=== PATIENT | male | born 1945 | race Caucasian/White ===

== ENCOUNTER 2023-08-03 06:17 | Day surgery (SDC) | payer OTHER, SELFPAY ==
[2023-06-22 14:45] VITALS: BMI 33.2
--- NOTE | 2023-06-22 15:35 | PTCARENOTE ---
Pt's abnormal EKG reviewed by Dr. Meyer, cardiac or medical clearance required. Angie in Dr. Vora's office made aware.
[2023-08-03] VITALS (12 sets, daily range): BP systolic 127–149; BP diastolic 61–85; BMI 33.2
[2023-08-03] MEDS: NORMOSOL-R 1000 IV (10:50)
[2023-08-03] MEDS: TYLENOL 1000 MG PO (10:57)
--- NOTE | 2023-08-03 13:37 | OR.RPT ---
Operative Report
Operative Report
Primary Surgeon: Diony
Assisting: Ninfa APARICIO
Pre-op Diagnosis: Incarcerated umbilical hernia
Post-op Diagnosis: Incarcerated umbilical hernia (3.5cm x 2.5cm)
Procedure Performed: Robot assisted laparoscopic repair of incarcerated umbilical hernia (rTAPP)
Anesthesia Type: GETA + TAP block
Specimen / Cultures: None
Estimated Blood Loss: 3cc
Complications: None immediate
Operative Findings: 3.5 x 2.5cm defect with incarcerated fat; 15cm x 15cm bard soft mesh
Date of Surgery:� 08/03/23
Indications:� This 77M developed�a symptomatic umbilical hernia. Repair was thus indicated and laparoscopic approach was elected.
Description of procedure:� The patient was taken to the operating room and the correct site of surgery was verified. General anesthesia was induced and the patient was placed supine on the operating table with arms tucked.� The patient�s abdomen was
prepped and draped in standard sterile fashion. A time-out was completed verifying correct patient, procedure, site, positioning, and implants and special equipment prior to beginning this procedure. A stab incision was made in the left upper
quadrant, a Veress needle was inserted and proper position was confirmed by aspiration and saline drop test. Following this, pneumoperitoneum was created with insufflation of carbon dioxide to 12 mmHg. Then a 8mm robotic trocar was inserted at the
left anterior axillary line at the level of the umbilicus. A laparoscope was inserted and the area of initial trocar entry and Veress needle placement were both inspected and free of trauma. Two 8mm trocars were then placed a hand's breadth above
and below the initial trocar under direct visualization. The peritoneum was incised at the falciform ligament and a flap was developed in transverse and caudad directions using blunt and sharp dissection. The umbilical defect measured as above. The
defect was closed with 0 PDS stratafix suture.� A 15 x 15cm piece of bard soft mesh was passed into the abdomen. The mesh was moved into position to lay flat against the abdominal wall, centered on the defect. The mesh was secured into place using
2-0 vicryl suture under the defect and at all four corners as well as senior living along each side.� A 2-0 monocryl stratafix was used to close the flap. A transversus abdominis plane block was performed under laparoscopic vision using
decadron/marcaine. After ensuring adequate hemostasis, the trocars were removed and the pneumoperitoneum allowed to escape. The trocar incisions were closed at the skin level using 4-0 monocryl and topical skin adhesive. The patient tolerated the
procedure well and was taken to the postanesthesia care unit in stable condition.
The assistance of Ninfa APARICIO was required due to the complexity of the procedure. During the procedure she assisted with retraction, resection, and closure of the wound.
[2023-08-03] MEDS: DILAUDID 0.5 MG IV ×2 (14:10→14:31)
[2023-08-03] MEDS: DEMEROL 12.5 MG IV (14:49)
--- NOTE | 2023-08-03 16:34 | SUR.PHASEI ---
Dr. Vora and Dr. Berry made aware of 02, pt wide awake, has IS, okay to move to SDS
== END 2023-08-03 17:07 | disposition home or self-care (01) ==
LOC: SDS 06:17
PROVIDERS: ATTENDING PHYSICIAN Surgery; FAMILY PHYSICIAN Family Medicine
DX: K42.0 Umbilical hernia with obstruction, without gangrene (principal)
CPT/HCPCS: 49592; 36415; 93005; C1781

== ENCOUNTER → 2023-08-24 06:16 | Day surgery (SDC) | payer OTHER, SELFPAY | LOC: GI 06:16 | PROVIDERS: ATTENDING PHYSICIAN Internal Medicine Gastroenterology | DX: K22.70 Barrett's esophagus without dysplasia (principal) | CPT/HCPCS: 43239; 88305 ==

== ENCOUNTER 2023-08-31 18:35 | Emergency (ER) | payer OTHER, SELFPAY ==
[2023-08-31 18:38] VITALS: BP 150/74
--- NOTE | 2023-08-31 19:19 | ED.GENMED ---
History of Present Illness
General
Chief Complaint: Dizziness
Source: patient
Exam Limitations: none
Time Seen by Provider: 08/31/23 19:18
Nursing documentation reviewed up to this point in time: agreed with
Travel History
Have you had any contact with someone who has COVID-19?: No
Do you have any symptoms of coronavirus? Fever > 100 degrees, chills, cough, shortness of breath, sore throat, loss of taste or smell, muscle aches, or headache?: No
History of Present Illness
History of Present Illness:
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 States sudden onset
room spinning dizziness, nausea and vomiting at 2 p.m. [place] completely well prior to that. Has Meclizine at home and took a dose at 2 p.m. and again at 3:30 p.m. No relief. Denies weakness in extremities, denies headache.
Has similar episode one month ago and took Meclizine, symptoms slowly dissipated over a weeks time.
Past History
Past History
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 difficile colitis June 2015., Sleep apnea) and Other (Vertigo); Negative Asthma, HTN, Hypercholesterolemia or NIDDM
ED Past Surgical History: Orthopedic and Other (Carpal tunnel release, basal cell removal from the left ear)
Social History
Tobacco: Former smoker
Alcohol: Occasional
Drug: None
Personal:
Living: with family
Employment: Retired
Family History
Family History: Other (Noncontributory)
Review of Systems
Review of Systems
Allergies reviewed?: Yes
All Other Systems: ROS reviewed and negative except as documented in HPI and ROS
Constitutional: Denies fever
Respiratory: Denies trouble breathing
Cardiac: Denies chest pain
ABD/GI: Reports nausea and vomiting; Denies abdominal pain
: Denies dysuria or difficulty voiding
Musculoskeletal: Reports no symptoms
Skin: Reports no symptoms
Neurological: Reports dizzy (severe room spinning and nausea when he opens his eyes.); Denies headache or weakness
Phy Exam
Physical Exam
Physical Exam:
GENERAL: Actively vomiting. A&Ox3.
CONSTITUTIONAL: Afebrile.
EYES: PERRL, conjunctivae normal
ENMT: moist mucus membranes, Pharynx nl
RESPIRATORY: Regular respirations, nonlabored, lungs clear.
CARDIOVASCULAR: Regular rate and rhythm, no murmurs, no rubs.
GI: Soft, nontender, normal BS
MUSCULOSKELETAL: Moves with ease. Well perfused.
SKIN: Warm, dry, pink
PSYCH: Anxious mood and affect. Well kept, interactive and appropriate
NEUROLOGIC: Awake, alert and oriented. No focal neurological deficits
Course
Orders/Labs/Results
Orders:
Orders
08/31/23 19:22
Ondansetron Injectable [Zofran] 4 mg IV NOW STA
diazePAM [Valium Injection] 2 mg IV NOW STA
08/31/23 19:23
0.9% Sodium Chloride 1000 ml [Nss] 1,000 ml IV BOLUS
08/31/23 19:30
Complete Blood Count/With Diff Urgent
Comprehensive Metabolic Panel Urgent
08/31/23 21:47
Meclizine [Antivert] 25 mg PO NOW STA
diazePAM [Valium Injection] 2 mg IV NOW STA
Abnormal Lab Results
08/31/23
19:30
Abs Immat Gran (auto) 0.1 H 10^3/uL
(0-0.05)
Absolute Neuts (auto) 7.2 H 10^3/uL
(1.4-6.5)
Absolute Lymphs (auto) 1.1 L 10^3/uL
(1.2-3.4)
Immature Gran % 0.9 H %
(0-0.5)
Neutrophils % 81.0 H %
(42.2-75.2)
Lymphocytes % 12.0 L %
(20.5-51.1)
Chloride 108 H mmol/L
(98-107)
Carbon Dioxide 20 L mmol/L
(22-30)
Glucose 187 H mg/dl
(70-99)
Total Protein 6.1 L g/dl
(6.3-8.2)
08/31/23 19:30
08/31/23 19:30
Vital Signs
Initial and Last Documented VS:
Initial Vital Signs
Temp Pulse Resp BP Pulse Ox
97.7 F 55 18 150/74 98
08/31/23 18:38 08/31/23 18:38 08/31/23 18:38 08/31/23 18:38 08/31/23 18:38
Last Documented Vital Signs
Temp Pulse Resp BP Pulse Ox
97.7 F 63 17 118/62 97
08/31/23 18:38 08/31/23 23:15 08/31/23 23:15 08/31/23 23:00 08/31/23 23:15
MDM/Problems Addressed
Differential Diagnosis Includes:
BPPV, labyrinthitis, vestibular neuritis
MDM/Problems Addressed:
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 States sudden onset
room spinning dizziness, nausea and vomiting at 2 p.m. [place] completely well prior to that. Has Meclizine at home and took a dose at 2 p.m. and again at 3:30 p.m. No relief. Denies weakness in extremities, denies headache.
Has similar episode one month ago and took Meclizine, symptoms slowly dissipated over a weeks time.
8:14 PM
patient feeling much better after medications
Tolerating aleksander horacio
Neuro exam is normal, cranial nerves II through XII intact, [id number] normal
9:40 p.m.
Pt OOB took 3 steps and got very dizzy and had to lay down, He does say he feels 50% better than on arrival but not quite ready to go home.
No further vomiting
Will give another dose of Valium and a dose of Meclizine
11:20
Pt feeling much better asking to go home
Rx for Zofran sent to his pharmacy. He has plenty of Meclizine at home
[facility]
*Critical Care Note
Total Time (30-74mins, 75-104mins- exclusive of procedures): Not Applicable
ED Attending Note
-
Portions of this chart may have been created with voice recognition software.� Occasional wrong word or��sound alike� substitutions may have occurred due to the inherent limitations of voice recognition software.
Discharge Plan
Departure
Patient Disposition: Home (Routine Discharge)
Date of Disposition: 08/31/23
Time of Disposition: 23:16
Patient with high blood pressure during this ER visit?: No
Condition: Good
Discharge Problem:
Benign paroxysmal positional vertigo
Instructions: Vertigo (a Type of Dizziness) (DC)
Prescriptions:
New
ondansetron 4 mg tablet,disintegrating
4 mg PO Q8H 3 Days Qty: 9 0RF
No Action
docusate sodium [Colace] 100 mg Capsule
100 mg PO DAILY
vitamin A-vitamin C-vit E-min Tablet
1 tab PO DAILY
alfuzosin 10 mg Tablet Extended Release 24 Hr
10 mg PO DAILY
tadalafil 5 mg Tablet
5 mg PO DAILY
cholecalciferol (vitamin D3) [Vitamin D3] 25 mcg (1,000 unit) Tablet
25 mcg PO DAILY
omeprazole 20 mg Tablet,Delayed Release (Dr/Ec)
20 mg PO DAILY
cyanocobalamin (vitamin B-12)
1 dose PO .EVERY 72 HOURS
melatonin 3 mg Tablet
3 mg PO HS
Occuvite
1 tab PO DAILY
oxycodone 5 mg tablet
5 - 10 mg PO Q4HPRN PRN (Reason: moderate to severe pain) Qty: 16 0RF
Referrals:
[facility] [Other[facility] - Tomorrow
Moni Barnhart MD [Family Provider] -
Activity Restrictions/Additional Instructions:
As we discussed, call the [facility] tomorrow and make next available appointment.
Meclizine 12.5- 25 mg every 8 hours as needed for dizziness.
I sent a prescription to your pharmacy for Zofran to use if needed for nausea/vomiting
Interventions
Interventions:
*Risk Screen - Suicide Last Done: 08/31/23 20:00
*General Assessment Last Done: 08/31/23 23:33
*Neglect/Abuse Screening Last Done: 08/31/23 20:00
ED- Fall Risk Assessment Last Done: 08/31/23 20:00
*Nursing Disposition Last Done: 08/31/23 23:33
ED- Neurological Assessment Last Done: 08/31/23 20:00
ED- Cardiac Assessment Last Done: 08/31/23 20:00
Discharge Date and Time
Discharge Date/Time: 08/31/23 23:35
Print Language: INDONESIAN
[2023-08-31] MEDS: VALIUM INJECTION 2 MG IV ×2 (19:28→21:52)
[2023-08-31] MEDS: ZOFRAN 4 MG IV (19:28)
[2023-08-31] MEDS: NSS 1000 IV (19:28)
[2023-08-31 19:30] VITALS: BP 145/64
[2023-08-31 19:41] LABS: % Basophils 0.3 % (0-2); % Immature Granulocytes 0.9 % (0-0.5); % Monocytes 4.8 % (1.7-9.3); Absolute Eosinophils 0.1 10^3/uL (0-0.7); Absolute Immature Granulocytes 0.1 10^3/uL (0-0.05); Absolute Lymphocytes 1.1 10^3/uL (1.2-3.4); Absolute Monocytes 0.4 10^3/uL (0.1-0.6); Absolute Neutrophils 7.2 10^3/uL (1.4-6.5); Hematocrit 42.3 % (39.0-52.0); Hemoglobin 14.4 g/dL (13.0-18.0); Mean Corpuscular Hgb 29.1 pg (27.0-31.0); Mean Corpuscular Volume 85.6 fL (80.0-94.0); Mean Platelet Volume 9.5 fL (7.4-10.4); Nucleated Red Blood Cells % 0 % (-); Platelet Count 181 10^3/uL (130-400); Red Blood Cell Count 4.94 10^6/uL (4.70-6.10); Red Cell Dist. Width 12.9 % (11.5-14.5); White Blood Cell Count 8.8 10^3/uL (4.8-10.8)
--- NOTE | 2023-08-31 19:45 | EDRN ---
After Valium, patients o2 sats decreased, reports he has a hx of sleep apnea, patient placed on nasal canula
[2023-08-31 19:55] LABS: ALT (SGPT) 14 U/L (0-50); AST (SGOT) 22 U/L (17-59); Albumin 3.6 g/dl (3.5-5.0); Alkaline Phosphatase 93 U/L (38-126); Blood Urea Nitrogen 17 mg/dl (9-20); Calcium 9.1 mg/dl (8.4-10.2); Carbon Dioxide 20 mmol/L (22-30); Chloride 108 mmol/L (98-107); Glucose 187 mg/dl (70-99); Potassium 4.5 mmol/L (3.5-5.1); Sodium 137 mmol/L (135-145); Total Bilirubin 0.5 mg/dl (0.2-1.3); Total Protein 6.1 g/dl (6.3-8.2); eGFR > 60.00
[2023-08-31 20:00] VITALS: BP 122/50; BMI 33.8
--- NOTE | 2023-08-31 20:14 | EDRN ---
Patient feeling a little better, provided with some gingerale to try
[2023-08-31 21:00] VITALS: BP 126/67
[2023-08-31] MEDS: ANTIVERT 25 MG PO (21:52)
[2023-08-31 22:00] VITALS: BP 126/78
--- NOTE | 2023-08-31 22:03 | EDRN ---
Attempted to ambulate, patient was only able to walk a few steps before getting very dizzy again, KARLIE Lancaster aware, more medication ordered and given to patient, call cherie in [facility], [place].
[2023-08-31 23:00] VITALS: BP 118/62
--- NOTE | 2023-08-31 23:32 | EDRN ---
Patient feels much better and good to be discharged home.
== END 2023-08-31 23:35 | disposition home or self-care (01) ==
LOC: EMR 18:35
PROVIDERS: EMERGENCY PHYSICIAN Emergency Medicine; FAMILY PHYSICIAN Family Medicine
DX: H81.10 Benign paroxysmal vertigo, unspecified ear (principal); G47.33 Obstructive sleep apnea (adult) (pediatric); J84.9 Interstitial pulmonary disease, unspecified; J84.112 Idiopathic pulmonary fibrosis; F32.9 Major depressive disorder, single episode, unspecified; N40.0 Benign prostatic hyperplasia without lower urinary tract symptoms; K21.9 Gastro-esophageal reflux disease without esophagitis; Z87.19 Personal history of other diseases of the digestive system; Z85.828 Personal history of other malignant neoplasm of skin; Z87.891 Personal history of nicotine dependence
CPT/HCPCS: 99283; 96374; 96375; 96376; 96361; 80053; 85025

== ENCOUNTER 2023-09-04 06:39 | Outpatient (RCR) | payer OTHER, SELFPAY | END 2023-09-04 23:59 | disposition home or self-care (01) | LOC: RPT 06:39 | PROVIDERS: ATTENDING PHYSICIAN Family Medicine | DX: R42 Dizziness and giddiness (principal); R26.2 Difficulty in walking, not elsewhere classified; Z73.6 Limitation of activities due to disability | CPT/HCPCS: 97112; 97162 ==

== ENCOUNTER → 2023-09-06 07:37 | Outpatient (REF) | payer OTHER, SELFPAY | LOC: MRI 07:37 | PROVIDERS: ATTENDING PHYSICIAN Physical Medicine & Rehabilitation; FAMILY PHYSICIAN Family Medicine | DX: M25.511 Pain in right shoulder (principal); M75.31 Calcific tendinitis of right shoulder | CPT/HCPCS: 73221 ==

== ENCOUNTER 2023-09-16 09:46 | Outpatient (RCR) | payer OTHER, SELFPAY | END 2023-09-16 23:59 | disposition home or self-care (01) | LOC: RPT 09:46 | PROVIDERS: ATTENDING PHYSICIAN Family Medicine | DX: R42 Dizziness and giddiness (principal); R26.2 Difficulty in walking, not elsewhere classified; Z73.6 Limitation of activities due to disability | CPT/HCPCS: 97112 ==

== ENCOUNTER → 2023-09-23 15:41 | Outpatient (REF) | payer OTHER, SELFPAY | LOC: HWRCS 15:41 | PROVIDERS: ATTENDING PHYSICIAN Internal Medicine Cardiovascular Disease; FAMILY PHYSICIAN Family Medicine | DX: I44.4 Left anterior fascicular block (principal) | CPT/HCPCS: 93306 ==

== ENCOUNTER → 2023-10-20 07:30 | Outpatient (REF) | payer OTHER, SELFPAY | LOC: PAVMRI 07:30 | PROVIDERS: ATTENDING PHYSICIAN Otolaryngology Facial Plastic Surgery; FAMILY PHYSICIAN Family Medicine | DX: R42 Dizziness and giddiness (principal); H81.12 Benign paroxysmal vertigo, left ear; H90.3 Sensorineural hearing loss, bilateral | CPT/HCPCS: 70553; A9575 ==

== ENCOUNTER 2023-11-02 16:38 | Inpatient (IN) | payer OTHER, SELFPAY ==
[2023-11-02] VITALS (13 sets, daily range): BP systolic 130–185; BP diastolic 61–101; BMI 34.6; BMI 33.2
--- NOTE | 2023-11-02 10:09 | EDRN ---
Autumn PHILLIPS in room w/ pt at this time.
--- NOTE | 2023-11-02 10:18 | EDRN ---
Pt was 95% POX at rest and dropped to 92% when moving for assessment so Autumn PHILLIPS placed pt on oxygen for comfort.
[2023-11-02 10:41] LABS: % Basophils 0.6 % (0-2); % Eosinophils 2.5 % (0-6); % Immature Granulocytes 0.8 % (0-0.5); % Lymphocytes 13.5 % (20.5-51.1); % Monocytes 7.1 % (1.7-9.3); % Neutrophils 75.5 % (42.2-75.2); Absolute Eosinophils 0.2 10^3/uL (0-0.7); Absolute Immature Granulocytes 0.1 10^3/uL (0-0.05); Absolute Monocytes 0.5 10^3/uL (0.1-0.6); Absolute Neutrophils 5.4 10^3/uL (1.4-6.5); Hematocrit 44.6 % (39.0-52.0); Hemoglobin 15.3 g/dL (13.0-18.0); Mean Corp Hgb Conc. 34.3 g/dL (33.0-37.0); Mean Corpuscular Hgb 28.7 pg (27.0-31.0); Mean Corpuscular Volume 83.7 fL (80.0-94.0); Mean Platelet Volume 9.1 fL (7.4-10.4); Nucleated Red Blood Cells % 0 % (-); Platelet Count 176 10^3/uL (130-400); Red Blood Cell Count 5.33 10^6/uL (4.70-6.10); White Blood Cell Count 7.2 10^3/uL (4.8-10.8)
[2023-11-02 10:56] LABS: ALT (SGPT) 17 U/L (0-50); AST (SGOT) 25 U/L (17-59); Albumin 3.5 g/dl (3.5-5.0); Alkaline Phosphatase 81 U/L (38-126); Blood Urea Nitrogen 20 mg/dl (9-20); Calcium 8.9 mg/dl (8.4-10.2); Carbon Dioxide 26 mmol/L (22-30); Chloride 107 mmol/L (98-107); Estimated Creatinine Clearance 81 ml/min; Glucose 125 mg/dl (70-99); Potassium 4.2 mmol/L (3.5-5.1); Sodium 137 mmol/L (135-145); Total Bilirubin 0.4 mg/dl (0.2-1.3); Total Protein 5.8 g/dl (6.3-8.2); eGFR > 60.00
[2023-11-02 11:08] LABS: NT-proBNP 455 pg/ml; Troponin I < 0.012 ng/ml
--- NOTE | 2023-11-02 13:35 | EDRN ---
Pt OOB to BR and back to stretcher.
--- NOTE | 2023-11-02 14:09 | EDRN ---
Pt ambulated from room #33 down to #26 across to #39 and back to room #33 past physician area. Pt had increasing SOB and lowering of pulse ox and heart rate increased to 120. POX decreased down to 88%, HR increased to 120 and resp rate w/ increased
WOB was [address] walk to end of walk.
--- NOTE | 2023-11-02 14:15 | EDRN ---
Autumn PHILLIPS was informed about pt's results of walk in HW w/out oxygen while monitoring POX.
--- NOTE | 2023-11-02 14:16 | EDRN ---
Autumn PHILLIPS in room w/ pt at this time.
--- NOTE | 2023-11-02 15:15 | ED.GENMED ---
History of Present Illness
General
Chief Complaint: Breathing Problem
Source: patient and spouse
Exam Limitations: none
Time Seen by Provider: 11/02/23 09:56
Nursing documentation reviewed up to this point in time: agreed with
History of Present Illness
History of Present Illness:
77-year-old male with past medical history of GERD pulmonary fibrosis presenting to the emergency department today with concerns of worsening shortness of breath over the past few days. Seem to start when he had surgery on his right shoulder done 3
days ago. Specifically worse with exertion denies specific chest pain denies fevers denies nausea vomiting.
Past History
Past History
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 difficile colitis June 2015., Sleep apnea) and Other (Vertigo); Negative Asthma, HTN, Hypercholesterolemia or NIDDM
ED Past Surgical History: Orthopedic and Other (Carpal tunnel release, basal cell removal from the left ear)
Social History
Tobacco: Former smoker
Alcohol: Occasional
Drug: None
Personal:
Living: with family
Employment: Retired
Family History
Family History: Other (Noncontributory)
Review of Systems
Review of Systems
Allergies reviewed?: Yes
All Other Systems: ROS reviewed and negative except as documented in HPI and ROS
Phy Exam
Physical Exam
Physical Exam:
GENERAL: Alert , in no apparent distress
EYE: pupils equal and reactive
NECK: Supple, no significant adenopathy.
ENT: o/p clr, mmm.
CARDIAC: Regular rate and rhythm .
LUNGS: Clear breath sounds bilaterally, no acute respiratory distress, no wheezes/rales/rhonchi
ABDOMEN: Soft, without focal tenderness, no r/g, no cvat
NEUROLOGICAL: Alert and oriented, no focal neuro deficits
SKIN: Warm and dry, skin intact.
MUSCULOSKELETAL: No edema, well perfused.
PSYCH: Normal and appropriate interaction.
Scores
Heart Failure Risk
Heart Failure Risk Score: Not Applicable
Course
Orders/Labs/Results
Orders:
Orders
11/02/23 10:[address] [CT Chest Pe Study] Urgent
Comment:
Reason For Exam: worsening SOB, hypoxemia, recent surgery R shoulde
11/02/23 10:17
Electrocardiogram (*1) Stat
Reason for Study: Other
Other Reason for Exam: pneumonia
Cardiac Monitoring- Treatment ONCE
EKG- Treatment ONCE
11/02/23 10:34
Complete Blood Count/With Diff Urgent
Comprehensive Metabolic Panel Urgent
NT-proBNP Urgent
Troponin I Urgent
11/02/23 14:53
Furosemide [Lasix] 40 mg IV ONCE ONE
Abnormal Lab Results
11/02/23
10:34
Abs Immat Gran (auto) 0.1 H 10^3/uL
(0-0.05)
Absolute Lymphs (auto) 1.0 L 10^3/uL
(1.2-3.4)
Immature Gran % 0.8 H %
(0-0.5)
Neutrophils % 75.5 H %
(42.2-75.2)
Lymphocytes % 13.5 L %
(20.5-51.1)
Glucose 125 H mg/dl
(70-99)
Total Protein 5.8 L g/dl
(6.3-8.2)
11/02/23 10:34
11/02/23 10:34
Vital Signs
Initial and Last Documented VS:
Initial Vital Signs
Temp Pulse Resp BP Pulse Ox
98.0 F 95 24 185/95 93
11/02/23 09:27 11/02/23 09:27 11/02/23 09:27 11/02/23 09:27 11/02/23 09:27
Last Documented Vital Signs
Temp Pulse Resp BP Pulse Ox
98.0 F 90 21 167/98 97
11/02/23 09:27 11/02/23 15:00 11/02/23 15:00 11/02/23 15:00 11/02/23 15:00
MDM/Problems Addressed
MDM/Problems Addressed:
77-year-old male presenting to the emergency department today with concerns of worsening dyspnea on exertion over the past few days seem to start after getting right-sided shoulder surgery 3 days ago. Here initial pulse ox was normal at rest but
rapidly dropping with small amounts of exertion with obvious dyspnea. EKG without emergent findings labs unremarkable troponin negative BNP marginally elevated at 455. CT scan without evidence of PE but did show pulmonary edema patient also does
have some swelling to his legs symmetrically bilaterally. Patient was given Lasix and will be admitted due to hypoxemia.
*Critical Care Note
Total Time (30-74mins, 75-104mins- exclusive of procedures): Not Applicable
ED Attending Note
-
Portions of this chart may have been created with voice recognition software.� Occasional wrong word or��sound alike� substitutions may have occurred due to the inherent limitations of voice recognition software.
Discharge Plan
Departure
Patient Disposition: Admit
Date of Disposition: 11/02/23
Time of Disposition: 15:19
Admit to: Telemetry
Admit to doctor: Hima
Presentation/result/management discussed w/ accepting MD/DO: Hospitalist
Patient with high blood pressure during this ER visit?: Yes
Condition: Good
Covid-19: Not Applicable
Discharge Problem:
Pulmonary edema, Hypoxemia
Prescriptions:
No Action
cyanocobalamin (vitamin B-12) 1,000 mcg Tablet
1,000 mcg PO HS Qty: 0
docusate sodium [Colace] 100 mg Capsule
100 mg PO HS
alfuzosin 10 mg Tablet Extended Release 24 Hr
10 mg PO HS
tadalafil 5 mg Tablet
5 mg PO HS
cholecalciferol (vitamin D3) [Vitamin D3] 25 mcg (1,000 unit) Tablet
25 mcg PO QPM
omeprazole 20 mg Tablet,Delayed Release (Dr/Ec)
20 mg PO HS
melatonin 3 mg Tablet
3 mg PO HS
acetaminophen [Tylenol] 325 mg Tablet
650 mg PO Q4HPRN PRN (Reason: MILD PAIN)
hydrocodone-acetaminophen 5-325 mg Tablet
1 tab PO Q6HPRN PRN (Reason: SEVERE PAIN)
ketorolac 10 mg Tablet
10 mg PO TIDPRN PRN (Reason: MILD PAIN)
Referrals:
Moni Barnhart MD [Family Provider] -
Interventions
Interventions:
*Risk Screen - Suicide Last Done: 11/02/23 09:29
*General Assessment Last Done: 11/02/23 09:29
*Neglect/Abuse Screening Last Done: 11/02/23 09:29
ED- Fall Risk Assessment Last Done: 11/02/23 10:45
*ED COVID-19 Vaccine History Last Done: 11/02/23 10:45
ED- Cardiac Assessment Last Done: 11/02/23 10:45
ED- Pulmonary Assessment Last Done: 11/02/23 10:45
ED-Skin Assessment Last Done: 11/02/23 10:45
Discharge Date and Time
Print Language: ISRAELI
--- NOTE | 2023-11-02 16:00 | EDRN ---
Dr. Dai in to see pt.
--- NOTE | 2023-11-02 16:05 | CON.CAR ---
Addendum entered and electronically signed by Sunny Jacobson MD 11/02/23 18:34:
I saw and examined the patient.
The [employer] OPERATOR [employer]AC[employer] SAND's note was reviewed and I agree with the note.
Comment: 77-year-old male (known to Dr. 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 He denies orthopne or
pnd. He has intense pain at the surgical site and down the right lateral chest wall. On exam he has diffuse fine rales, rrr, no m/r/g, trace pitting edema at the ankles. Probnp not c/w chf. CT no PE but ILD seen. I explained that I think his VILLAREAL is
due to iatrogenic volume overload in the setting of ILD. Given the ILD, it wouldn't take much fluid to make him feel poorly. His ecg and sx are not c/w ischemia--no cp or trop elevation. Given vol overload we will repeat echo. He is HTN and will
start an ARB. Will follow
Original Note:
Consultation
Consultation Request
Date/Time Consultation Requested: 11/02/2023 16:00
Date/Time Consultation Performed: 11/02/2023 16:10
Requesting Provider: Dr. Dai
Performing Provider: ESTELA Finnegan for Dr. Jacobson
Reason for Consultation: Acute HFpEF
Medical History
-
Chief Complaint: Shortness of breath
History of Present Illness:
Gera Landaverde is a 77-year-old male (known to Dr. 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 He was
found to be hypoxic requiring supplemental oxygen. His shortness of breath is worst with exertion and improves with rest. He has a moist non productive cough. CT PE study did not show pulmonary embolism. He is having no chest pain. He was given
furosemide 40mg IV x 1 in the ER. He denies PND and orthopnea.
Past Medical History
Past Medical History: GERD and Other (ILD, NIECY on CPAP)
Past Surgical History: Orthopedic
Social History
Tobacco: Former Smoker
Alcohol: None
Drug: None
Personal:
Living: With Family
Employment: Retired
Family History
Family History: Reviewed & Not Pertinent
Allergies / Home Medications
Allergy/AdvReac Type Severity Reaction Status Date / Time
gabapentin Allergy Dizzy, Verified 11/02/23 09:32
'makes me
feel weird'
tetanus toxoid, adsorbed Allergy flu Verified 11/02/23 09:32
symptoms
�Medication �Instructions �Recorded �Confirmed �Type
alfuzosin 10 mg tablet,extended 10 mg PO HS 07/28/23 11/02/23 History
release 24 hr
cholecalciferol (vitamin D3) 25 25 mcg PO QPM 07/28/23 11/02/23 History
mcg (1,000 unit) tablet (Vitamin
D3)
cyanocobalamin (vitamin B-12) 1,000 mcg PO HS ##0 07/28/23 11/02/23 History
1,000 mcg tablet
docusate sodium 100 mg capsule 100 mg PO HS 07/28/23 11/02/23 History
(Colace)
omeprazole 20 mg tablet,delayed 20 mg PO HS 07/28/23 11/02/23 History
release
tadalafil 5 mg tablet 5 mg PO HS 07/28/23 11/02/23 History
melatonin 3 mg tablet 3 mg PO HS 08/03/23 11/02/23 History
acetaminophen 325 mg tablet 650 mg PO Q4HPRN PRN MILD PAIN 11/02/23 11/02/23 History
(Tylenol)
hydrocodone 5 mg-acetaminophen 325 1 tab PO Q6HPRN PRN SEVERE PAIN 11/02/23 11/02/23 History
mg tablet
ketorolac 10 mg tablet 10 mg PO TIDPRN PRN MILD PAIN 11/02/23 11/02/23 History
Review of Systems
-
History Source: Patient
All other systems: Negative unless noted
Constitutional: No Symptoms
EENT: No Symptoms
Respiratory: Cough and Trouble Breathing
Cardiac: No Symptoms
Abdomen/GI: No Symptoms
: No Symptoms
Musculoskeletal: No Symptoms
Skin: No Symptoms
Neurological: No Symptoms
Endocrine: No Symptoms
Hematologic/Lymphatic: No Symptoms
Physical Exam
Vital Signs
Temp Pulse Resp BP Pulse Ox
98.0 F 90 21 167/98 97
11/02/23 09:27 11/02/23 15:00 11/02/23 15:00 11/02/23 15:00 11/02/23 15:00
Lab Results
11/02/23 10:34
11/02/23 10:34
Troponin I < 0.012 ng/ml 11/02/23 10:34
Bej-H-Cnwjynxccij Pept 455 pg/ml 11/02/23 10:34
Physical Exam
General: Well Developed, Well Nourished, No Apparent Distress and Comfortable
HEENT: Normocephalic, Anicteric and Moist Mucous Membranes
Respiratory: Crackles (post bases) and Non Labored Respirations
Cardiac: S1/S2 and Regular Rhythm
Breast: Deferred by me
GI: Soft, Non Tender, Non Distended and Normal Bowel Sounds
Rectal: Deferred by Provider
Genito-urinary: No Costovertebral Tender
Musculoskeletal: No Clubbing, No Cyanosis and No Edema
Skin: Warm and Dry
Neuro: AO x 3
Hematologic/Lymphatic: No Lymphadenopathy
Psych: Calm
Impression / Plan
-
BACKGROUND: 77M with LAFB, ILD, NIECY on CPAP, GERD, BPH, and prediabetes with recent right shoulder surgery on 10/30/2023 presents with shortness of breath
Under Cutter: Dr. Green
Acute hypoxic respiratory insufficiency
-Given recent surgery CT PE study performed, no pulmonary embolism
-Currently requiring 2 L/min
Shortness of breath
-Could be volume overload (IV fluids intra-op)
-Trial of diuresis, assess for improvement in am
-Recent echocardiogram stable (09/2023)
Hypertension
-He is not on any agents in the outpatient setting
-Start valsartan 40mg daily
Rotator cuff repair by Dr. Swanson ([facility]) 10/30/2023
LAFB, chronic
Prediabetes, Hgba1c 6.1%
BPH, follows with Dr. Read
Former smoker, continued cessation recommended
ILD, following with Dr. Sadi Barger ([facility])
NIECY on CPAP
Data Reviewed
-
EKG: Report Reviewed by me (Sinus rhythm, LAFB, rate 78)
[2023-11-02] MEDS: LASIX 40 MG IV (16:07)
--- NOTE | 2023-11-02 16:09 | HPS.HSE ---
Family Physician
-
Family Physician: Moni Barnhart
Chief Complaint
-
Shortness of breath
History of Present Illness
77-year-old male with history of GERD, pulmonary fibrosis, Kc's esophagitis, sleep apnea, recent right shoulder surgery came to the hospital with worsening shortness of breath from past few days. Patient also endorsed orthopnea. Denies any
chest pain. Denies any trauma. Denies any nausea, vomiting, diarrhea, constipation. Per patient he has been compliant with all his medications. He recently had echocardiogram done last month as a preop for his shoulder surgery.
Medical History
Past Medical History
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 difficile, sleep apnea, GERD, pulmonary fibrosis)
Past Surgical History: Reports Other (Patient is removal of the left ear, carpal tunnel, right shoulder)
Social History
Tobacco: Former Smoker
Alcohol: Occasional
Family History
Family History: Not pertinent
Allergies / Home Medications
Allergies reflects when Allergies were last updated in [facility].
Home Medications with original date entered in [facility]
Allergy/Medication List:
Allergies
Allergy/AdvReac Type Severity Reaction Status Date / Time
gabapentin Allergy Dizzy, Verified 11/02/23 09:32
'makes me
feel weird'
tetanus toxoid, adsorbed Allergy flu Verified 11/02/23 09:32
symptoms
Home Medications
alfuzosin 10 mg tablet,extended release 24 hr 10 mg PO HS 07/28/23
cholecalciferol (vitamin D3) 25 mcg (1,000 unit) tablet (Vitamin D3) 25 mcg PO QPM 07/28/23
cyanocobalamin (vitamin B-12) 1,000 mcg tablet 1,000 mcg PO HS ##0 07/28/23
docusate sodium 100 mg capsule (Colace) 100 mg PO HS 07/28/23
omeprazole 20 mg tablet,delayed release 20 mg PO HS 07/28/23
tadalafil 5 mg tablet 5 mg PO HS 07/28/23
melatonin 3 mg tablet 3 mg PO HS 08/03/23
acetaminophen 325 mg tablet (Tylenol) 650 mg PO Q4HPRN PRN MILD PAIN 11/02/23
hydrocodone 5 mg-acetaminophen 325 mg tablet 1 tab PO Q6HPRN PRN SEVERE PAIN 11/02/23
ketorolac 10 mg tablet 10 mg PO TIDPRN PRN MILD PAIN 11/02/23
Review of Systems
-
History Source: Patient
A 12 point ROS was completed and negative except as noted: Yes
Physical Exam
Vital Signs
Vital Signs
Temp Pulse Resp BP Pulse Ox
98.0 F 90 21 167/98 97
11/02/23 09:27 11/02/23 15:00 11/02/23 15:00 11/02/23 16:07 11/02/23 15:00
Physical Exam
General: Well Nourished and No Apparent Distress
HEENT: Anicteric and Moist mucous membranes
Respiratory: Clear; No Wheezes
Cardiac: S1/S2 and Regular Rhythm
Breast: Deferred by me
GI: Soft, Non Tender, Non Distended and Normal Bowel Sounds
Rectal: Deferred by Provider
Genito-urinary: No Helton
Musculoskeletal: Edema, Left Lower Extremity and Edema, Right Lower Extremity
Neuro: Awake, Alert, Oriented and AO x 3
Psych: Calm and Intact Judgment/Insight
Laboratory Results
-
11/02/23 10:34
11/02/23 10:34
Laboratory Results
Total Bilirubin 0.4 mg/dl (0.2-1.3) 11/02/23 10:34
AST 25 U/L (17-59) 11/02/23 10:34
ALT 17 U/L (0-50) 07/29/24 10:34
Alkaline Phosphatase 81 U/L (38-126) 11/02/23 10:34
Troponin I < 0.012 ng/ml 11/02/23 10:34
Impression/Plan
-
Acute hypoxic respiratory sufficiency likely secondary to pulmonary edema in the setting of possible acute CHF exacerbation
Start IV Lasix
Recent echo with preserved EF, defer updated echo to cardiology
Cardiology evaluation
Hypertensive in the ED, monitor after diuresis. Blood pressure still elevated and will need blood pressure control
CT chest without pulmonary embolism, interval progression of interstitial lung disease with superimposed pulmonary edema
Wean oxygen as tolerated
History of idiopathic pulmonary fibrosis
Follows up with physician at [facility]
Continue to monitor, if symptoms do not improve with diuresis then will need pulmonary evaluation
Recent right shoulder surgery
Continue to monitor
Pain control
BPH
cw afluzosin
DVTppx
lovenox
Full code
[2023-11-02] MEDS: LOVENOX 40 MG SC (18:09)
[2023-11-02] MEDS: NORCO 5/325 1 TABLET PO (18:09)
[2023-11-02] MEDS: VITAMIN D3 (cholecalciferol) 25 MCG PO (18:10)
[2023-11-02] MEDS: FLOMAX 0.4 MG PO (21:23)
[2023-11-02] MEDS: PROTONIX 40 MG PO (21:23)
[2023-11-02] MEDS: MELATONIN 3 MG PO (21:23)
[2023-11-02] MEDS: COLACE 100 MG PO (21:23)
[2023-11-02] MEDS: VITAMIN B-12 1000 MCG PO (21:23)
[2023-11-02 21:27] LABS: Troponin I < 0.012 ng/ml
[2023-11-03] MEDS: NORCO 5/325 1 TABLET PO ×3 (00:12→13:31)
[2023-11-03 03:00] VITALS: BP 131/70
[2023-11-03 03:28] LABS: % Basophils 0.6 % (0-2); % Eosinophils 2.4 % (0-6); % Immature Granulocytes 0.8 % (0-0.5); % Lymphocytes 19.4 % (20.5-51.1); % Monocytes 8.9 % (1.7-9.3); % Neutrophils 67.9 % (42.2-75.2); Absolute Basophils 0.1 10^3/uL (0-0.2); Absolute Eosinophils 0.2 10^3/uL (0-0.7); Absolute Immature Granulocytes 0.1 10^3/uL (0-0.05); Absolute Lymphocytes 1.7 10^3/uL (1.2-3.4); Absolute Monocytes 0.8 10^3/uL (0.1-0.6); Absolute Neutrophils 5.8 10^3/uL (1.4-6.5); Hematocrit 42.9 % (39.0-52.0); Hemoglobin 14.8 g/dL (13.0-18.0); Mean Corp Hgb Conc. 34.5 g/dL (33.0-37.0); Mean Corpuscular Hgb 28.9 pg (27.0-31.0); Mean Corpuscular Volume 83.8 fL (80.0-94.0); Mean Platelet Volume 9.1 fL (7.4-10.4); Nucleated Red Blood Cells % 0 % (-); Platelet Count 193 10^3/uL (130-400); Red Blood Cell Count 5.12 10^6/uL (4.70-6.10); Red Cell Dist. Width 12.9 % (11.5-14.5); White Blood Cell Count 8.5 10^3/uL (4.8-10.8)
[2023-11-03 03:43] LABS: Troponin I < 0.012 ng/ml
[2023-11-03 03:47] LABS: Blood Urea Nitrogen 19 mg/dl (9-20); Calcium 8.8 mg/dl (8.4-10.2); Carbon Dioxide 24 mmol/L (22-30); Chloride 105 mmol/L (98-107); Estimated Creatinine Clearance 80 ml/min; Glucose 110 mg/dl (70-99); Potassium 4.2 mmol/L (3.5-5.1); Sodium 136 mmol/L (135-145); eGFR > 60.00
[2023-11-03 06:00] VITALS: BMI 32.6
[2023-11-03 07:30] VITALS: BP 132/69
[2023-11-03] MEDS: DIOVAN 40 MG PO (09:21)
[2023-11-03] MEDS: LASIX 40 MG IV (09:22)
--- NOTE | 2023-11-03 09:50 | W.PN.CD ---
Today's Communication / Plan
-
no further diuresis
will update ef
if normal home to follow up with pcp
Impression / Plan
-
BACKGROUND: 77M with LAFB, ILD, NIECY on CPAP, GERD, BPH, and prediabetes with recent right shoulder surgery on 10/30/2023 presents with shortness of breath
Tube Coater: Dr. Green
Acute hypoxic respiratory insufficiency
-Given recent surgery CT PE study performed, no pulmonary embolism
-now on room air and feeling much better
Iatrogenic volume overload in the setting of surgery:
-imrpoved with diuresis
-given mild tachycardia will update ef, if normal no chf
-Recent echocardiogram stable (09/2023)
Hypertension
-He is not on any agents in the outpatient setting
-Improved on valsartan 40mg daily
Rotator cuff repair by Dr. Swanson ([facility]) 10/30/2023
LAFB, chronic
Prediabetes, Hgba1c 6.1%
BPH, follows with Dr. Read
Former smoker, continued cessation recommended
ILD, following with Dr. Sadi Barger ([facility])
NIECY on CPAP
Physical Exam
Vital Signs/Labs
Vital Signs
Temp Pulse Resp BP Pulse Ox
97.8 F 65 18 132/69 95
11/03/23 07:30 11/03/23 09:22 11/03/23 07:30 11/03/23 09:22 11/03/23 07:30
11/02/23 11/03/23 11/04/23
06:59 06:59 06:59
Actual Weight 105.942 kg
11/03/23 02:57
11/03/23 02:57
11/02/23
10:34
Mut-K-Gdizhygvfhu Pept 455
LAB Results
11/02/23 11/02/23 11/03/23
10:34 20:57 02:57
Troponin I < 0.012 < 0.012 < 0.012
Physical Exam
Constitutional: No acute distress
Cardiovascular: Rhythm & rate is regular, Pedal edema is absent, JVD pressure is normal, Systolic murmur absent and Diastolic murmur absent
Respiratory: Respiratory effort normal, Wheeze Absent and Crackles Present (diffusely)
Neuro/Psych: AO x 3
Data Reviewed
-
Date of Service: November 03, 2023
EKG: Other (tele with sinus tachycardia)
[2023-11-03 11:03] VITALS: BP 121/75
--- NOTE | 2023-11-03 11:45 | W.PN.HOSP.TC ---
Today's Communication/Plan
-
Monitor vital signs
see plan
No further Lasix per cardiology
If echocardiogram looks good today then discharge
now off o2
Assessment / Plan
Assessment / Plan
Acute hypoxic respiratory sufficiency likely secondary to pulmonary edema likley 2/2 iatrogenic overload
cardiology does not believe this was acute CHF
no lasix on dc
Recent echo with preserved EF, echo today pending. if ok then dc home today
Cardiology evaluation
Started ARB
CT chest without pulmonary embolism, interval progression of interstitial lung disease with superimposed pulmonary edema
Wean oxygen as tolerated; now on room air
History of idiopathic pulmonary fibrosis
Follows up with physician at [facility]
Continue to monitor, if symptoms do not improve with diuresis then will need pulmonary evaluation
Recent right shoulder surgery
Continue to monitor
Pain control
BPH
cw afluzosin
DVTppx
lovenox
Full code
General: Well Nourished and No Apparent Distress
HEENT: Anicteric and Moist mucous membranes
Respiratory: Clear; No Wheezes
Cardiac: S1/S2 and Regular Rhythm
GI: Soft, Non Tender, Non Distended and Normal Bowel Sounds
Genito-urinary: No Helton
Musculoskeletal:trace edema
Neuro: Awake, Alert, Oriented and AO x 3
Psych: Calm and Intact Judgment/Insight
Anticipated Discharge: Today
Subjective/Interval History
-
Date of Service: November 03, 2023
denies pain
Objective Data
-
Labs:
Laboratory Results
11/03/23
02:57
WBC 8.5
Hgb 14.8
Hct 42.9
Plt Count 193
Sodium 136
Potassium 4.2
Chloride 105
Carbon Dioxide 24
BUN 19
Creatinine 1.0
Glucose 110 H
Calcium 8.8
Vital Signs:
Vital Signs
Temp Pulse Resp BP Pulse Ox
98.1 F 87 18 121/75 96
11/03/23 11:03 11/03/23 11:03 11/03/23 11:03 11/03/23 11:03 11/03/23 11:03
I&O
11/02/23 11/03/23 11/04/23
06:59 06:59 06:59
Intake Total 480 / 480
Output Total 775 / 775
Balance -295 / -295
--- NOTE | 2023-11-03 12:52 | CM ---
CM met with pt and spouse bedside
They reside in a 2SH with 2STE, 12 steps up to 2nd floor
Independent with all ADLs with no ADs
Has a working cpap at home and SPC/WW for use if needed
No financial insecurities
PCP- Moni Barnhart
rx- Christi Crouch
Possible dc later today pending testing results
Pt notes independence in room and no dc needs noted
IMM completed 11/01 and remains valid
Discharge Disposition- home, no needs- spouse transport
--- NOTE | 2023-11-03 14:46 | W.DCSUMMARY ---
Discharge Summary
Discharge Data
Date of Admission: 11/02/23
Date of Discharge: 11/03/23
-
Pending Results: No
Hospital Course
77-year-old male with past medical history of idiopathic pulmonary fibrosis, BPH, recent right shoulder surgery came to the hospital with acute hypoxic respiratory insufficiency secondary to pulmonary edema which was likely thought was secondary to
iatrogenic fluid overload. Patient was initially given IV Lasix. proBNP was not significantly elevated on this hospitalization. Patient was seen by cardiology throughout hospitalization. Cardiology did not thought that patient has acute CHF and
did not recommended Lasix on discharge. For his blood pressure since it was high he was started on valsartan. Echocardiogram was done which showed preserved EF. Since patient symptoms continue to improve, he was then discharged home with
instructions to follow-up with all his physicians outpatient.
Discharge Plan
-
Patient Disposition: Home (Routine Discharge)
Discharge Diagnosis/Procedures: Acute hypoxic respiratory insufficiency suspect likely secondary to iatrogenic fluid overload
Diet: As tolerated
Activity: As tolerated
Driving Restrictions: As prior to admission
Bathing Restrictions: None
Referrals:
Sunny Jacobson MD [Active] -
Moni Barnhart MD [Family Provider] - in less than 1 week
Prescriptions:
New
valsartan 40 mg Tablet
40 mg PO DAILY Qty: 30 0RF
Continued
cyanocobalamin (vitamin B-12) 1,000 mcg Tablet
1,000 mcg PO HS Qty: 0
docusate sodium [Colace] 100 mg Capsule
100 mg PO HS
alfuzosin 10 mg Tablet Extended Release 24 Hr
10 mg PO HS
tadalafil 5 mg Tablet
5 mg PO HS
cholecalciferol (vitamin D3) [Vitamin D3] 25 mcg (1,000 unit) Tablet
25 mcg PO QPM
omeprazole 20 mg Tablet,Delayed Release (Dr/Ec)
20 mg PO HS
melatonin 3 mg Tablet
3 mg PO HS
acetaminophen [Tylenol] 325 mg Tablet
650 mg PO Q4HPRN PRN (Reason: MILD PAIN)
hydrocodone-acetaminophen 5-325 mg Tablet
1 tab PO Q6HPRN PRN (Reason: SEVERE PAIN)
ketorolac 10 mg Tablet
10 mg PO TIDPRN PRN (Reason: MILD PAIN)
Discharge Orders:
Discharge Patient (As Directed); Ordered 11/03/23
Ordered By: Nirav Dai
Discharge Date and Time
Discharge Date/Time: 11/03/23 15:52
Print Language: TELUGU
[2023-11-03 15:20] VITALS: BP 122/68
== END 2023-11-03 15:52 | disposition home or self-care (01) | DRG 189 ==
LOC: 3 WEST ACU 16:38
PROVIDERS: Physician Assistant; ADMITTING PHYSICIAN Internal Medicine; CONSULT PHYSICIAN Internal Medicine Cardiovascular Disease; EMERGENCY PHYSICIAN Emergency Medicine; FAMILY PHYSICIAN Family Medicine
DX: J81.0 Acute pulmonary edema (principal); R09.02 Hypoxemia; J84.112 Idiopathic pulmonary fibrosis; N40.0 Benign prostatic hyperplasia without lower urinary tract symptoms; G47.33 Obstructive sleep apnea (adult) (pediatric); K21.9 Gastro-esophageal reflux disease without esophagitis; I10 Essential (primary) hypertension; Z87.891 Personal history of nicotine dependence
CPT/HCPCS: 93308; 71275; 80048; 80053; 83880; 84484; 85025; 93005; 93321; 93325; 99285; Q9967

== ENCOUNTER 2024-03-28 06:21 | Day surgery (SDC) | payer OTHER, SELFPAY | END 2024-03-28 14:09 | LOC: GI 06:21 | PROVIDERS: ATTENDING PHYSICIAN Internal Medicine Gastroenterology | DX: R19.4 Change in bowel habit (principal); K57.30 Diverticulosis of large intestine without perforation or abscess without bleeding; K64.8 Other hemorrhoids; D12.3 Benign neoplasm of transverse colon | CPT/HCPCS: 45385; 45380; 88305 ==

== ENCOUNTER → 2024-05-24 08:28 | Outpatient (REF) | payer OTHER, SELFPAY | LOC: MRI 3T 08:28 | PROVIDERS: ATTENDING PHYSICIAN Internal Medicine Gastroenterology; FAMILY PHYSICIAN Family Medicine | DX: K52.9 Noninfective gastroenteritis and colitis, unspecified (principal) | CPT/HCPCS: 72197; 74183; A9575 ==

== ENCOUNTER 2025-04-03 05:46 | Emergency (ER) | payer OTHER, SELFPAY ==
[2025-04-03 06:00] VITALS: BP 156/83
[2025-04-03 06:36] LABS: Hematocrit 46.5 % (39.0-52.0); Hemoglobin 15.6 g/dL (13.0-18.0); Mean Corp Hgb Conc. 33.5 g/dL (33.0-37.0); Mean Corpuscular Volume 86.0 fL (80.0-94.0); Nucleated Red Blood Cells % 0 % (-); Platelet Count 180 10^3/uL (130-400); Red Cell Dist. Width 12.7 % (11.5-14.5)
[2025-04-03 06:46] LABS: ALT (SGPT) 16 U/L (0-50); AST (SGOT) 21 U/L (17-59); Albumin 3.9 g/dl (3.5-5.0); Alkaline Phosphatase 92 U/L (38-126); Blood Urea Nitrogen 18 mg/dl (9-20); Calcium 9.0 mg/dl (8.4-10.2); Carbon Dioxide 28 mmol/L (22-30); Chloride 106 mmol/L (98-107); Glucose 114 mg/dl (70-99); Potassium 4.5 mmol/L (3.5-5.1); Sodium 139 mmol/L (135-145); Total Protein 6.7 g/dl (6.3-8.2); eGFR > 60.00
--- NOTE | 2025-04-03 07:02 | ED.GENMED ---
History of Present Illness
<Jack Araya MD, Resident - Last Filed: 04/03/25 09:34>
General
Chief Complaint: Abdominal Pain
Time Seen by Provider: 04/03/25 07:02
History of Present Illness
History of Present Illness:
79 yo M PMH IPF, BPH, last colonoscopy 2023 (diverticuli) p/w LLQ pain for 2 weeks. reports constant dull ache with intermittent spiking. endorses having an appetite, denies n/v.
reports passing both fully formed stools and passing flatus with liquidy stool.
no constitutional symptoms
had diverticulitis > 20 years prior.
denies any trauma for recent episode
reports taking 'lots of aleve' but denies epigastric symptoms; denies any reflux, pain with PO intake.
no dyspnea, no chest pain
Past History
<Castro Thomas, DO - Last Filed: 04/03/25 08:23>
Past History
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 difficile colitis June 2015., Sleep apnea) and Other (Vertigo); Negative Asthma, HTN, Hypercholesterolemia or NIDDM
ED Past Surgical History: Orthopedic and Other (Carpal tunnel release, basal cell removal from the left ear)
Social History
Tobacco: Former smoker
Alcohol: Occasional
Drug: None
Personal:
Living: with family
Employment: Retired
Family History
Family History: Other (Noncontributory)
Review of Systems
<Jack Araya MD, Resident - Last Filed: 04/03/25 09:34>
Review of Systems
Constitutional: Reports no symptoms
EENT: Reports no symptoms
Respiratory: Reports trouble breathing (chronic; IPF)
Cardiac: Reports no symptoms
ABD/GI: Reports abdominal pain
: Reports no symptoms
Neurological: Reports no symptoms
Phy Exam
<Jack Araya MD, Resident - Last Filed: 04/03/25 09:34>
Physical Exam
Physical Exam:
VS: BP 121/89; HR 73
General: no acute distress
CV: no murmurs on my exam
Pulm: faint crackles appreciable bilaterally
GI: LLQ tenderness, no rebound tenderness, no CVA tenderness
MSK: no lower extremity edema
Course
<Jack Araya MD, Resident - Last Filed: 04/03/25 09:34>
Orders/Labs/Results
Orders:
Orders
04/03/25 06:23
Complete Blood Count/With Diff Urgent
04/03/25 06:24
CMP [Comprehensive Metabolic Panel] Urgent
04/03/25 07:06
CT Abd/pelvis W Iv Cont Urgent
Comment:
Reason For Exam: LLQ abdominal pain
04/03/25 09:21
Tramadol HCl [Ultram] 50 mg PO NOW STA
Abnormal Lab Results
04/03/25 04/03/25
06:23 06:24
Abs Immat Gran (auto) 0.1 H 10^3/uL
(0-0.05)
Absolute Monos (auto) 0.7 H 10^3/uL
(0.1-0.6)
Immature Gran % 1.0 H %
(0-0.5)
Lymphocytes % 17.9 L %
(20.5-51.1)
Glucose 114 H mg/dl
(70-99)
04/03/25 06:23
04/03/25 06:24
Vital Signs
Initial and Last Documented VS:
Initial Vital Signs
Temp Pulse Resp BP Pulse Ox
98.6 F 79 18 156/83 96
12/29/25 06:00 04/03/25 06:00 04/03/25 06:00 04/03/25 06:00 04/03/25 06:00
Last Documented Vital Signs
Temp Pulse Resp BP Pulse Ox
98.6 F 63 15 124/71 99
04/03/25 06:00 04/03/25 08:00 04/03/25 08:00 04/03/25 08:00 04/03/25 08:05
<Castro Thomas, DO - Last Filed: 04/03/25 08:23>
Orders/Labs/Results
Orders:
Orders
04/03/25 06:23
Complete Blood Count/With Diff Urgent
04/03/25 06:24
CMP [Comprehensive Metabolic Panel] Urgent
04/03/25 07:06
CT Abd/pelvis W Iv Cont Urgent
Comment:
Reason For Exam: LLQ abdominal pain
04/03/25 09:21
Tramadol HCl [Ultram] 50 mg PO NOW STA
Abnormal Lab Results
04/03/25 04/03/25
06:23 06:24
Abs Immat Gran (auto) 0.1 H 10^3/uL
(0-0.05)
Absolute Monos (auto) 0.7 H 10^3/uL
(0.1-0.6)
Immature Gran % 1.0 H %
(0-0.5)
Lymphocytes % 17.9 L %
(20.5-51.1)
Glucose 114 H mg/dl
(70-99)
04/03/25 06:23
04/03/25 06:24
Vital Signs
Initial and Last Documented VS:
Initial Vital Signs
Temp Pulse Resp BP Pulse Ox
98.6 F 79 18 156/83 96
04/03/25 06:00 04/03/25 06:00 04/03/25 06:00 04/03/25 06:00 04/03/25 06:00
Last Documented Vital Signs
Temp Pulse Resp BP Pulse Ox
98.6 F 63 15 124/71 99
04/03/25 06:00 04/03/25 08:00 04/03/25 08:00 04/03/25 08:00 04/03/25 08:05
<Jack Araya MD, Resident - Last Filed: 04/03/25 09:34>
MDM/Problems Addressed
Differential Diagnosis Includes:
diverticulitis, appendicitis abscess, pyelonephritis, UTI, constipation, dyspepsia, GERD
MDM/Problems Addressed:
79 yo M p/w LLQ abdominal pain for 2 weeks, reports dull ache constant and then intermittent spiking
hx of diverticulosis
no peritoneal signs on my exam
no constitutional symptoms
Plan:
CBC - no leukocytosis
CMP
CT A/P w IV contrast ordered - no acute abdominal process. simple renal cysts noted (patient has no urinary symptoms)
Tramadol 50mg for pain control
Although no imaging evidence of diverticulitis, will treat empirically with 7 day augmentin bid.
Patient counselled to follow-up with PCP and GI (has appointment scheduled for 04/07).
Disposition: home
<Jack Araya MD, Resident - Last Filed: 04/03/25 09:34>
*Pulse Oximetry
Patient hypoxic: no
*Critical Care Note
Total Time (30-74mins, 75-104mins- exclusive of procedures): Not Applicable
<Castro Thomas DO - Last Filed: 04/03/25 08:23>
*Pulse Oximetry
SaO2: 96
Oxygen Mode of Delivery: Room air
ED Attending Note
<Castro Thomas DO - Last Filed: 04/03/25 08:23>
ED Attending Note
Patient seen and examined by attending physician: Yes
I performed a history and physical exam of patient and discussed management with resident, I reviewed resident's note and agree with documented findings and plan of care.: Yes
ED Attending Note:
I evaluated the patient at bedside. The patient has known diverticular disease. CT imaging does not show any clear sign of diverticulitis however he has ongoing tenderness in the left lower quadrant that could still be consistent with occult
diverticulitis. Will place on Augmentin. Notifying GI supervisor front to help arrange close outpatient follow-up with Dr. Diego.
-
Portions of this chart may have been created with voice recognition software.� Occasional wrong word or��sound alike� substitutions may have occurred due to the inherent limitations of voice recognition software.
Discharge Plan
Departure
Patient Disposition: Home (Routine Discharge)
Date of Disposition: 04/03/25
Time of Disposition: 09:33
Patient with high blood pressure during this ER visit?: No
Condition: Good
Discharge Problem:
Abdominal pain
Prescriptions:
New
amoxicillin-pot clavulanate 875-125 mg tablet
1 tab PO Q12H Qty: 14 0RF
tramadol 50 mg tablet
50 - 100 mg PO Q8H PRN (Reason: Pain) Qty: 12 0RF
No Action
docusate sodium [Colace] 100 mg Capsule
100 mg PO HS
alfuzosin 10 mg Tablet Extended Release 24 Hr
10 mg PO HS
cholecalciferol (vitamin D3) [Vitamin D3] 25 mcg (1,000 unit) Tablet
25 mcg PO QPM
omeprazole 20 mg Tablet,Delayed Release (Dr/Ec)
20 mg PO HS
acetaminophen [Tylenol] 325 mg Tablet
650 mg PO Q4HPRN PRN (Reason: MILD PAIN)
hydrocodone-acetaminophen 5-325 mg Tablet
1 tab PO Q6HPRN PRN (Reason: SEVERE PAIN)
omeprazole 20 mg Tablet,Delayed Release (Dr/Ec)
20 mg PO DAILY
Lactobacillus acidophilus [Probiotic] 10 billion cell Capsule
10,000 mmu cells PO DAILY
Referrals:
Gigi Diego MD [Active, Gastroenterology] - Follow up in 2-3 days
Referral Note: you have an appt on Apr 07
Moni Barnhart MD [Family Provider, Family Practice]
Activity Restrictions/Additional Instructions:
You presented with abdominal pain. Your CT was negative for an acute intraabdominal process. You are being prescribed a 7 day course of augmentin. A script for tramadol is also being provided.
You should follow up with GI, you have an appt scheduled for Apr 07
You should follow up with your primary care doctor within 1-2 weeks.
Interventions
Interventions:
*General Assessment Last Done: 04/03/25 07:29
*Neglect/Abuse Screening Last Done: 04/03/25 07:29
*ED COVID-19 Vaccine History Last Done: 04/03/25 07:29
*ED Influenza Vaccine History Last Done: 04/03/25 07:29
*Risk Screen - Suicide (C-SSRS) Last Done: 04/03/25 06:00
CD-Yprsps-Gbkaobnrst Assessment Last Done: 04/03/25 07:47
Discharge Date and Time
Print Language: BULGARIAN
[2025-04-03 07:22] VITALS: BMI 32.4
[2025-04-03 07:23] VITALS: BP 121/89
[2025-04-03 07:25] VITALS: BP 121/89
[2025-04-03 08:00] VITALS: BP 124/71
[2025-04-03 09:00] VITALS: BP 160/91
[2025-04-03] MEDS: ULTRAM 50 MG PO (09:28)
== END 2025-04-03 09:45 | disposition home or self-care (01) ==
LOC: EMR 05:46
PROVIDERS: Emergency Medicine; EMERGENCY PHYSICIAN Emergency Medicine; FAMILY PHYSICIAN Family Medicine
DX: R10.32 Left lower quadrant pain (principal); G47.30 Sleep apnea, unspecified; K21.9 Gastro-esophageal reflux disease without esophagitis; N40.0 Benign prostatic hyperplasia without lower urinary tract symptoms; Z85.828 Personal history of other malignant neoplasm of skin; Z86.19 Personal history of other infectious and parasitic diseases; Z87.19 Personal history of other diseases of the digestive system; Z87.891 Personal history of nicotine dependence
CPT/HCPCS: 99284; 74177; 80053; 85025; Q9967

== ENCOUNTER → 2025-04-04 12:25 | Outpatient (REF) | payer OTHER, SELFPAY | LOC: RSP 12:25 | PROVIDERS: ATTENDING PHYSICIAN Internal Medicine Sleep Medicine; FAMILY PHYSICIAN Family Medicine | DX: J84.9 Interstitial pulmonary disease, unspecified (principal); G47.33 Obstructive sleep apnea (adult) (pediatric) | CPT/HCPCS: 88738; 94060; 94727; 94729 ==